=== PATIENT | female | born 1975 | race Caucasian/White ===

== ENCOUNTER 2019-07-24 07:32 | Outpatient (CLI) | payer BC, SELFPAY ==
--- NOTE | 2019-07-24 07:37 | MM_ITS ---
WS: [id number] BILATERAL SCREENING DIGITAL MAMMOGRAM WITH CAD HISTORY: SCREENING COMPARISON: 06/01/2018 and 10/27/2017 Bilateral CC and MLO views submitted. Computer aided detection analyzed. Breast composition: The breasts are heterogeneously dense, which may obscure small masses. No suspici ous masses, microcalcifications or architectural distortion. Dense fibroglandular soft tissue upper o uter quadrant of each breast, greatest on the LEFT. 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 No distort ion. MM/[id number] IMPRESSION: BI-RADS: 2-Benign FOLLOW UP: 1 Year Follow-up
== END 2019-07-24 07:33 | disposition home or self-care (01) ==
LOC: RADSHAW 07:33
PROVIDERS: Family Provider Family Medicine; PCP Family Medicine; Visit Provider Family Medicine
DX: Z12.31 Encounter for screening mammogram for malignant neoplasm of breast (principal)
CPT/HCPCS: 77067

== ENCOUNTER 2019-09-27 22:06 | Emergency (ER) | payer BC, SELFPAY ==
[2019-09-27 22:17] VITALS: BP 126/85; PULSE 77; RESP 16; TEMP 36.3; O2SAT 98; BMI 30.2
--- NOTE | 2019-09-27 22:34 | USR_ITS ---
PROCEDURE INFORMATION: Exam: US Abdomen Complete Exam date and time: 09/27/2019 11:45 PM Age: 44 years old Clinical indication: Abdominal pain; Acute TECHNIQUE: Imaging protocol: Real-time ultrasound of the abdomen with image documentation. COMPARISON: No relevant prior studies available. FINDINGS: Liver: Unremarkable liver, no focal abnormality. Gallbladder: No cholelithiasis. Possible mild gallbladder wall thickening, measuring up to about 4 mm. No definite pericholecystic fluid. The gallbladder does not appear abnormally distended at this time. Common bile duct: No biliary dilation, common duct measures 3.6 mm. Pancreas: Visible pancreas unremarkable. Kidneys: Images of the kidneys show no hydronephrosis. Spleen: The spleen appears unremarkable. Aorta/IVC: Visualized portions of the aorta and IVC appear unremarkable. Intraperitoneal space: No visible ascites. US/US abdomen complete* [id number] IMPRESSION: 1. No cholelithiasis or biliary tree dilation 2. Possible mild gallbladder wall thickening. 3. Other details discussed above.
--- NOTE | 2019-09-27 22:49 | ED_ITS ---
HPI - Abdominal Pain General: Chief Complaint: Abdominal Pain Stated Complaint: upper abd pain Time Seen by Provider: 09/27/19 22:27 History of Present Illness: HPI narrative: Brittanie is a very nice 44-year-old female who comes in complaining of epigastric and right upper quadrant pain. She has had 5 similar episodes in the past over the last 6 months. Tonight was different because it lasted longer than before. She is been nauseated but has not vomited. She has no diarrhea, urinary symptoms or other complaints. She denies any radiation of her pain, fever or chest pain or shortness of breath. Associated Symptoms: Denies chills, coffee ground emesis, constipation, GI cramping, diarrhea, dysuria, fever(s), heartburn, hematochezia, hematuria, hematemesis, melena, syncope and vomiting Related Data: Date of Last Menstrual Period: 09/26/19 Review of Systems Const: Denies: fever(s), chills, body aches, fatigue, malaise, night sweats or diaphoresis Eyes: Denies: change in vision, blurry vision or blind spots ENMT: Denies: throat pain, odynophagia, hoarseness, ear or mastoid pain, ear discharge, change in hearing or nasal discharge Card: Denies: chest pain, palpitations, irregular heart rhythm, lightheadedness, syncope, pre-syncope, dyspnea on exertion or orthopnea Resp: Denies: dyspnea, productive cough, non-productive cough, wheezing, hemoptysis or chest congestion GI: Denies: vomiting, hematemesis, coffee ground emesis, heartburn, diarrhea, constipation, GI cramping, hematochezia or melena : Denies: flank pain, dysuria, urinary frequency, urinary urgency, oliguria, urinary incontinence or hematuria Musc: Denies: neck pain, back pain, extremity pain, extremity swelling, joint pain, joint swelling, joint redness, joint warmth or joint stiffness Skin/Breast: Denies: rash, pruritus, erythema, skin tenderness or jaundice Neuro: Denies: headache(s), numbness in extremities, weakness in extremities, sensory changes, lack of coordination, difficulty walking, dizziness, vertigo, confusion or Slurred speech present Endo: Denies: polyuria, polydipsia, tired all the time, cold intolerance, excessive sweating, flushing, hot flashes or heat intolerance Daniel/Lymph: Denies: easy bruising, easy bleeding, petechiae, purpura or enlarged lymph nodes All/Imm: Denies: urticaria, throat swelling, tongue swelling, facial swelling or acute wheezing PFSH ED PFSH: Medical History No pertinent past medical history Surgical History No history of previous surgery Social History Smoking and tobacco status: never smoked Female Reproductive History: Date of last menstrual period: 09/26/19 : 4 Physical Exam Const: COMMON NORMALS: no acute distress, patient oriented x3, no limitations, healthy appearing and well nourished EXAM LIMITATIONS: no altered mental status GENERAL APPEARANCE: cooperative, well kempt and well developed HENMT: COMMON NORMALS: normocephalic, atraumatic, hearing grossly normal bilaterally, external ears normal, EAC's normal, Normal external nose present and moist oral mucous membranes HEAD & SCALP: normal to inspection, normocephalic and atraumatic FACE & SINUS: normal facial exam and face symmetric NOSE: Normal external nose present and Normal nares present EXTERNAL EAR: Yes external ears normal EXTERNAL AUDITORY CANAL: EAC's normal MOUTH: Normal oral and palatal mucosa present, lip normal and tongue normal Eye: COMMON NORMALS: Equal, round and reactive pupils present, EOMs intact bilaterally, conjunctivae normal and no scleral icterus GENERAL EYE: appearance normal, both eyes and all related structures and normal light reflex ALIGNMENT: Yes alignment normal PERIORBITAL: periorbital findings normal EYELID: eyelids normal CONJUNCTIVA: Yes conjunctivae normal SCLERA: sclerae normal PUPIL: Yes Equal, round and reactive pupils present DIRECT OPHTHALMOSCOPY: Yes normal light reflex Neck/C-Spine: COMMON NORMALS: full ROM, no lymphadenopathy, supple, no meningeal signs and no JVD GENERAL: Yes normal visual inspection and Yes trachea midline CERVICAL SPINE: Yes cervical ROM normal Chest: COMMONS NORMALS: normal inspection of the chest and normal palpation of entire chest wall Resp: COMMON NORMALS: normal respiratory effort, No retractions, No use of accessory muscles and clear to auscultation bilaterally EFFORT & INSPECTION: Yes able to speak in complete sentences AUSCULTATION: clear to auscultation bilaterally, no crackles, no rales, no rhonchi and no wheezes Cardio: COMMON NORMALS: no JVD, regular rate, regular rhythm, S1 normal heart sound present, S2 normal heart sound present, No gallops present (Cardio), No clicks present (Cardio), No murmurs present (Cardio) and No rub (Cardio) RATE: regular rate RHYTHM: regular rhythm HEART SOUNDS: S1 normal heart sound present, S2 normal heart sound present, no click, no gallops, no murmurs and no rubs GI: COMMON NORMALS: Soft to palpation, No hepatosplenomegaly present and no masses PALPATION: Yes Soft to palpation, Yes Tenderness to palpation present (GI) (Moderate in the epigastric and right upper quadrant area), No Guarding due to palpation present (GI), No Rigid due to palpation, Yes No hepatosplenomegaly present, No Hernia present, No Palpable mass present and No Pulsatile mass present : COMMON NORMALS: Yes no CVA tenderness BLADDER/KIDNEY EXAM: Yes no CVA tenderness EXTERNAL FEMALE EXAM: No Hernia present Back/Pelvis: COMMON NORMALS: no CVA tenderness, thoracic and lumbar spine normal to inspection, no thoracic nor lumbar tenderness and thoraco-lumbar ROM normal Extremity: COMMON NORMALS: normal to inspection, full ROM, capillary refill normal, no joint enlargement, no clubbing, cyanosis or edema and no calf tenderness Neuro: COMMON NORMALS: patient oriented x3, CN's II-XII intact bilaterally, moves all extremities, no focal motor deficits and no sensory deficits noted MENINGEAL SIGNS: Yes no meningeal signs SPEECH: speech normal Psych: COMMON NORMALS: mental status grossly normal, Normal thought process present, cooperative, normal affect, speech normal and activity/motor behavior normal APPEARANCE: Yes well kempt SPEECH: Yes normal speech THOUGHT PROCESS: Normal thought process present Skin: COMMON NORMALS: no rashes or lesions noted, turgor normal, no jaundice, no petechiae and no mottling GENERAL SKIN EXAM: no rashes or lesions noted and turgor normal Course Vital Signs: Vital signs: Vital Signs Temperature 97.4 F L 09/27/19 22:17 Pulse Rate 68 09/28/19 01:40 Respiratory Rate 18 09/28/19 01:40 Blood Pressure 128/77 09/28/19 01:40 Pulse Oximetry 99 09/28/19 01:40 MDM - Abdominal Pain MDM Narrative: Medical decision making narrative: The case was reviewed with Dr. Tucker. He agrees to follow-up with the patient as an outpatient and order a possible HIDA scan. Patient states that she may follow-up with Dr. Tucker or with her primary. She declined staying for any further cardiac work-up. She agrees to return should her symptoms change or worsen but at this time her pain is gone and she is asymptomatic. Differential Diagnosis: Differential diagnosis abdominal pain: Likely abdominal pain, acute appendicitis, calculus of kidney, gastroenteritis, pancreatitis and small bowel obstruction Lab Data: Attestation: I reviewed the patient's lab results. Labs: Lab Results 09/27/19 09/27/19 09/27/19 Range/Units 22:40 22:40 22:40 WBC 12.7 H (4.0-10.0) 10^3/ uL RBC 4.88 (4.1-5.3) 10^6/u L Hgb 14.2 (11.5-15.3) g/dL Hct 43.8 (37.0-47.0) % MCV 89.8 (81-99) fL MCH 29.1 (28.0-34.0) pg MCHC 32.4 (30.0-36.0) g/dL RDW 11.8 L (12.1-15.1) % Plt Count 318 (130-400) 10^3/c mm MPV 10.1 (7.4-10.4) fL Neut % (Auto) 78.1 % Lymph % (Auto) 12.5 % Pacific % (Auto) 5.8 % Eos % (Auto) 3.1 % Baso % (Auto) 0.3 % Neut # (Auto) 9.9 H (1.8-7.7) 10^3/u L Lymph # (Auto) 1.6 (0.8-4.8) 10^3/u L Pacific # (Auto) 0.7 (0.2-0.9) 10^3/u L Eos # (Auto) 0.4 (0.0-0.8) 10^3/u L Baso # (Auto) 0.0 (0.0-0.1) 10^3/u L Nucleated RBC % (a uto) 0 % Nucleated RBCs # 0.0 /100WBC Sodium 142 (136-145) mmol/L Potassium 4.1 (3.5-5.1) mmol/L Chloride 103 (98-107) mmol/L Carbon Dioxide 29 (22-29) mmol/L Anion Gap 14.1 (5-19) BUN 15 (6-20) mg/dL Creatinine 0.7 (0.5-0.9) mg/dL GFR Calculation 90.5 (90-130) mL/min Glucose 102 (65-115) mg/dL Calculated Osmolal ity 290 (285-295) mOsm/k g Calcium 9.9 (8.5-10.5) mg/dL Total Bilirubin 0.5 (0.15-1.2) mg/dL AST 17 (0-32) U/L ALT 9 (0-33) U/L Alkaline Phosphata se 58 (35-105) IU/L Total Protein 7.4 (6.6-8.7) g/dL Albumin 4.8 (3.5-5.2) g/dL Globulin 2.6 (1.3-4.6) g/dL Lipase 42 (13-60) U/L HCG, Qual Negative (Negative) Urine Color (Yellow) Urine Appearance (CLEAR) Urine pH (5-7) Ur Specific Gravit y (1.005-1.030) Urine Protein (Negative) Urine Glucose (UA) (Normal) Urine Ketones (Negative) Urine Blood (Negative) Urine Nitrate (Negative) Urine Bilirubin (NEGATIVE) Urine Urobilinogen (Negative) mg/dL Ur Leukocyte Anai ase (Negative) Urine RBC (0-2) /hpf Urine WBC (0-5) /hpf Ur Squamous Epith Cells (0-5) Amorphous Sediment Urine Bacteria (NONE) H. pylori IgG Anti body (Negative) 09/27/19 09/27/19 Range/Units 22:40 23:53 WBC (4.0-10.0) 10^3/ uL RBC (4.1-5.3) 10^6/u L Hgb (11.5-15.3) g/dL Hct (37.0-47.0) % MCV (81-99) fL MCH (28.0-34.0) pg MCHC (30.0-36.0) g/dL RDW (12.1-15.1) % Plt Count (130-400) 10^3/c mm MPV (7.4-10.4) fL Neut % (Auto) % Lymph % (Auto) % Pacific % (Auto) % Eos % (Auto) % Baso % (Auto) % Neut # (Auto) (1.8-7.7) 10^3/u L Lymph # (Auto) (0.8-4.8) 10^3/u L Pacific # (Auto) (0.2-0.9) 10^3/u L Eos # (Auto) (0.0-0.8) 10^3/u L Baso # (Auto) (0.0-0.1) 10^3/u L Nucleated RBC % (a uto) % Nucleated RBCs # /100WBC Sodium (136-145) mmol/L Potassium (3.5-5.1) mmol/L Chloride (98-107) mmol/L Carbon Dioxide (22-29) mmol/L Anion Gap (5-19) BUN (6-20) mg/dL Creatinine (0.5-0.9) mg/dL GFR Calculation (90-130) mL/min Glucose (65-115) mg/dL Calculated Osmolal ity (285-295) mOsm/k g Calcium (8.5-10.5) mg/dL Total Bilirubin (0.15-1.2) mg/dL AST (0-32) U/L ALT (0-33) U/L Alkaline Phosphata se (35-105) IU/L Total Protein (6.6-8.7) g/dL Albumin (3.5-5.2) g/dL Globulin (1.3-4.6) g/dL Lipase (13-60) U/L HCG, Qual (Negative) Urine Color Yellow (Yellow) Urine Appearance Clear (CLEAR) Urine pH 7 (5-7) Ur Specific Gravit y 1.010 (1.005-1.030) Urine Protein Neg (Negative) Urine Glucose (UA) Norm (Normal) Urine Ketones Negative (Negative) Urine Blood Neg (Negative) Urine Nitrate Negative (Negative) Urine Bilirubin Neg (NEGATIVE) Urine Urobilinogen Norm (Negative) mg/dL Ur Leukocyte Anai ase Negative (Negative) Urine RBC Rare (0-2) /hpf Urine WBC Rare (0-5) /hpf Ur Squamous Epith Cells Rare (0-5) Amorphous Sediment 1+ Urine Bacteria 1+ H (NONE) H. pylori IgG Anti body Negative (Negative) Imaging Data ^: US: Radiologist's impression: [address] [place] [address] Ultrasound Report Signed Patient: Brittanie Preciado Unit #: [id number] : 1975 Age/Sex: 44 / F ADM Date: 09/27/19 Loc: ER Room/Bed: Attending Dr: Ordering Provider/Ordering MD: Marisa Jett DO Date of Service: 09/27/19 Procedure(s): US abdomen complete* [id number] Accession Number(s): [id number] Report Number: [id number] PROCEDURE INFORMATION: Exam: US Abdomen Complete Exam date and time: 09/27/2019 11:45 PM Age: 44 years old Clinical indication: Abdominal pain; Acute TECHNIQUE: Imaging protocol: Real-time ultrasound of the abdomen with image documentation. COMPARISON: No relevant prior studies available. FINDINGS: Liver: Unremarkable liver, no focal abnormality. Gallbladder: No cholelithiasis. Possible mild gallbladder wall thickening, measuring up to about 4 mm. No definite pericholecystic fluid. The gallbladder does not appear abnormally distended at this time. Common bile duct: No biliary dilation, common duct measures 3.6 mm. Pancreas: Visible pancreas unremarkable. Kidneys: Images of the kidneys show no hydronephrosis. Spleen: The spleen appears unremarkable. Aorta/IVC: Visualized portions of the aorta and IVC appear unremarkable. Intraperitoneal space: No visible ascites. US/US abdomen complete* [id number] IMPRESSION: 1. No cholelithiasis or biliary tree dilation 2. Possible mild gallbladder wall thickening. 3. Other details discussed above. Dictated By: Ford Vann MD Signed By: Ford Vann MD Signed Date/Time: 09/28/19 0002 DD/ 0001 Discharge Plan Discharge Patient Disposition: Home, Self-Care Clinical Impression: Acute epigastric pain Condition: Stable Prescriptions: New Augmentin 875-125 mg tablet 1 tab PO BID 10 Days Qty: 20 RF: 0 Zofran 4 mg tablet 4 mg PO Q6H PRN (Reason: nausea and vomiting) Qty: 20 RF: 0 Discharge Orders: Discharge Order (Routine); Ordered 09/28/19 Ordered By: Marisa Jett Referrals: Ramón Tucker MD [Physician] - 1-3 days Jitendra Voss MD [Primary Care Provider] - 1-3 days Patient Instructions: Abdominal Pain (ED) Activity Restrictions/Additional Instructions: Please return to the ER immediately for any of the signs or symptoms listed on your discharge instruction sheets, worsening/changing of your symptoms, you are not getting better as quickly as expected, or for ANY other cause or concerns. If you change your mind and want your heart evaluated or your abdominal pain returns you are more than welcome to return to the ER for recheck and further evaluation and care. Discharge Date/Time: 09/28/19 01:41 Coding Level of Care Code ED Bandsaw Operator for Chg Fwd Exam Comprehensive
[2019-09-27] MEDS: ondansetron 2 mg/ML SDV 2 mL 4 MG IVP (22:50)
[2019-09-27 22:51] VITALS: RESP 18; O2SAT 99
[2019-09-27] MEDS: morphine 4 mg/mL SDV 1 mL IVP (22:51)
[2019-09-27 23:04] LABS: Basophils % 0.3 %; Eosinophils # 0.4 10^3/uL (0.0-0.8); Eosinophils % 3.1 %; Hematocrit 43.8 % (37.0-47.0); Hemoglobin 14.2 g/dL (11.5-15.3); Lymphocytes # 1.6 10^3/uL (0.8-4.8); Lymphocytes % 12.5 %; Mean Corpuscular HGB Conc 32.4 g/dL (30.0-36.0); Mean Corpuscular Hemoglobin 29.1 pg (28.0-34.0); Mean Corpuscular Volume 89.8 fL (81-99); Mean Platelet Volume 10.1 fL (7.4-10.4); Monocytes # 0.7 10^3/uL (0.2-0.9); Monocytes % 5.8 %; Neutrophils # 9.9 10^3/uL (1.8-7.7); Neutrophils % 78.1 %; Nucleated Red Blood Cells % 0 %; Platelet Count 318 10^3/cmm (130-400); Red Blood Count 4.88 10^6/uL (4.1-5.3); Red Cell Distribution Width 11.8 % (12.1-15.1); White Blood Count 12.7 10^3/uL (4.0-10.0)
[2019-09-27 23:11] LABS: HCG, Serum Qual Negative (Negative)
[2019-09-27 23:25] LABS: Alanine Aminotransferase 9 U/L (0-33); Albumin Level 4.8 g/dL (3.5-5.2); Alkaline Phosphatase 58 IU/L (35-105); Anion Gap 14.1 (5-19); Aspartate Amino Transferase 17 U/L (0-32); Blood Urea Nitrogen 15 mg/dL (6-20); Calcium 9.9 mg/dL (8.5-10.5); Carbon Dioxide 29 mmol/L (22-29); Chloride 103 mmol/L (98-107); Creatinine Clr Calc Pharmacy 96.1265; Globulin 2.6 g/dL (1.3-4.6); Glomerular Filtration Rate 90.5 mL/min (90-130); Glucose 102 mg/dL (65-115); Lipase 42 U/L (13-60); Osmolality Calculated 290 mOsm/kg (285-295); Potassium 4.1 mmol/L (3.5-5.1); Sodium 142 mmol/L (136-145); Total Bilirubin 0.5 mg/dL (0.15-1.2); Total Protein 7.4 g/dL (6.6-8.7)
[2019-09-27] MEDS: lidocaine 2% viscous 15 ML, aluminum-mag hydrox-simethicon 30 ML, sucralfate oral liq 1 GM PO (23:49)
[2019-09-28 00:08] VITALS: BP 132/68; PULSE 82; RESP 16; O2SAT 99
[2019-09-28 00:16] LABS: Amorphous Sediment Urine 1+; Bacteria Urine 1+; Bilirubin Urine Neg (NEGATIVE); Blood Urine Neg (Negative); Glucose Urine UA Norm (Normal); Ketones Urine Negative (Negative); Leukocyte Esterase Urine Negative (Negative); Nitrate Urine Negative (Negative); Protein Urine Neg (Negative); RBC Urine RARE /hpf (0-2); Squamous Epithelial Cell Urine RARE (0-5); Urine Appearance Clear (CLEAR); Urine Color Yellow (Yellow); Urobilinogen Urine Norm (Negative); WBC Urine RARE /hpf (0-5); pH Urine 7 (5-7)
[2019-09-28 00:41] LABS: H. Pylori IgG Antibody Negative (Negative)
[2019-09-28] MEDS: amoxicillin-clav 875-125 mg Tablet 1 TAB PO (01:38)
[2019-09-28 01:40] VITALS: BP 128/77; PULSE 68; RESP 18; O2SAT 99
--- NOTE | 2019-09-30 11:21 | DCPLANNER ---
retention manager had message to schedule a follow up appointment for patient with general surgery. retention manager called [facility], spoke with Sandra. A follow up appointment was scheduled for Tuesday, October 01, 2019 at 3:[address] Tucker. Clinic will call patient with appointment information.
--- NOTE | 2019-10-23 15:03 | DCPLANNER ---
Appointment scheduled with [facility] was cancelled.
== END 2019-09-28 01:41 | disposition home or self-care (01) ==
PROVIDERS: Emergency Provider Emergency Medicine; PCP Family Medicine
DX: R10.13 Epigastric pain (principal)
CPT/HCPCS: 12345; 76700; 80053; 81001; 83690; 84703; 85025; 86677; 96374; 96375; 99283; A9270; J2270; J2405

== ENCOUNTER 2020-10-09 15:13 | Outpatient (CLI) | payer OTHER, SELFPAY ==
--- NOTE | 2020-10-09 15:18 | MM_ITS ---
WS: [id number] BILATERAL SCREENING DIGITAL MAMMOGRAM WITH CAD HISTORY: SCREENING COMPARISON: 07/24/2019, 06/01/2018 ultrasound 06/01/2018 Bilateral CC and MLO views submitted. Computer aided detection analyzed. Breast composition: The breasts are heterogeneously dense, which may obscure small masses. Dense fibr oglandular tissue in the upper-outer quadrant of the LEFT breast with partially obscured nodules. Sim ilar findings present on prior studies. Numerous cysts seen on prior ultrasound. MM/[place] [id number] IMPRESSION: BI-RADS: 2-Benign FOLLOW UP: 1 Year Follow-up
== END 2020-10-09 15:14 | disposition home or self-care (01) ==
LOC: RADSHAW 15:17
PROVIDERS: PCP Family Medicine; Visit Provider Family Medicine
DX: Z12.31 Encounter for screening mammogram for malignant neoplasm of breast (principal)
CPT/HCPCS: 77067

== ENCOUNTER 2021-12-27 08:54 | Outpatient (CLI) | payer OTHER, SELFPAY ==
--- NOTE | 2021-12-27 08:59 | MM_ITS ---
WS: [id number] VIEWS: MLO and CC views both breasts. 3D digital tomosynthesis is also included in this exam. Comparison made with prior exam of 02/22/2016, 10/20/2016, 10/27/2017, 06/01/2018, 07/24/2019, 10/09/2020.. Findings: There was no sign of mass, architectural distortion or suspicious calcification in either breast. He terogeneously dense MM/[place] [id number] Impression: BI-RADS: 2-Benign FOLLOW-UP: 1 Year Follow-up This mammogram was also analyzed by the Computer Aided Detection System R2 Imag e Knife Operator.
== END 2021-12-27 08:55 | disposition home or self-care (01) ==
LOC: RAD 08:54
PROVIDERS: PCP Family Medicine; Visit Provider Family Medicine
DX: Z12.31 Encounter for screening mammogram for malignant neoplasm of breast (principal)
CPT/HCPCS: 77063; 77067

== ENCOUNTER 2023-01-02 08:01 | Outpatient (CLI) | payer OTHER, SELFPAY ==
--- NOTE | 2023-01-02 08:11 | MM_ITS ---
WS: [id number] BILATERAL 3D TOMOSYNTHESIS DIGITAL SCREENING MAMMOGRAPHY WITH CAD CLINICAL INFORMATION: SCREENING HISTORY: Screening mammogram. No current complaints. COMPARISON: 2021 TECHNIQUE: Bilateral CC and MLO views. FINDINGS: The breasts are composed of heterogeneous fibroglandular density tissue, which can limit the detectio n of small underlying mass lesions. No suspicious mass, asymmetry, calcifications, or architectural d istortion. No evidence of malignancy. Dense breast tissue upper outer LEFT breast similar to the prio r examinations. Previously described cysts in the upper outer LEFT breast some of which have increase d in size compared to previous but similar in configuration. These have been previously evaluated by ultrasound. IMPRESSION: MM/[place] [id number] BI-RADS: 2-Benign FOLLOW UP: 1 Year Follow-up Recommend return to annual screening mammography.
== END 2023-01-02 08:02 | disposition home or self-care (01) ==
PROVIDERS: PCP Family Medicine; Visit Provider Family Medicine
DX: Z12.31 Encounter for screening mammogram for malignant neoplasm of breast (principal)
CPT/HCPCS: 77063; 77067

== ENCOUNTER 2024-02-09 11:41 | Outpatient (CLI) | payer OTHER, SELFPAY ==
--- NOTE | 2024-02-09 11:43 | MM_ITS ---
WS: [id number] SCREENING DIGITAL BREAST TOMOSYNTHESIS MAMMOGRAM WITH CAD HISTORY: SCREENING COMPARISON: 07/24/2019, 06/01/2018, 01/02/2023, prior breast ultrasound 02/22/2016 and 06/01/2018 Bilateral CC and MLO with tomosynthesis and synthetic mammography submitted. Computer aided detection analyzed. Breast composition: The breasts are extremely dense, which lowers the sensitivity of mammography. Inc reasing asymmetry in the posterior LEFT breast just medial to the nipple line measures 2.1 x 3.0 x 1. 9 cm. There is an additional asymmetry which is partially obscured and is probably a cyst that has be en previously described. Breasts are very dense in the upper outer quadrant and towards the midline. Additional partially obscured focal asymmetry in the lateral RIGHT breast seen best on the CC project ion. Very dense fibroglandular tissue upper outer quadrant. MM/MM scr BI tomosynthesis [id number] IMPRESSION: BI-RADS: 0 - Incomplete: Need additional imaging evaluation FOLLOW UP: Need Additional Imaging 1. Recommend additional evaluation of the upper outer quadrant of each breast due to the very dense asymmetry and fibroglandular tissue. There is a new parti ally obscured mass of increased density near 9:00 of the LEFT breast which need s to be further evaluated. 2. RIGHT breast ultrasound: Upper outer quadrant. 3. LEFT breast: Upper outer quadrant and 9:00.
== END 2024-02-09 11:42 | disposition home or self-care (01) ==
LOC: RAD 11:41
PROVIDERS: PCP Family Medicine; Visit Provider Family Medicine
DX: Z12.31 Encounter for screening mammogram for malignant neoplasm of breast (principal); R92.333 Mammographic heterogeneous density, bilateral breasts; N64.89 Other specified disorders of breast
CPT/HCPCS: 77063; 77067

== ENCOUNTER 2024-02-26 12:18 | Emergency (ER) | payer OTHER, SELFPAY ==
[2024-02-26 12:20] VITALS: BP 155/87; PULSE 109; RESP 18; TEMP 36.8; O2SAT 98; BMI 29.2
--- NOTE | 2024-02-26 12:26 | XRR_ITS ---
PROCEDURE INFORMATION: Exam: XR Chest Exam date and time: 02/26/2024 12:40 PM Age: 48 years old Clinical indication: Other: Weakness TECHNIQUE: Imaging protocol: Radiologic exam of the chest. Views: 1 view. COMPARISON: No relevant prior studies available. FINDINGS: Lungs: Unremarkable. No consolidation. Pleural spaces: Unremarkable. No pleural effusion. No pneumothorax. Heart/Mediastinum: Unremarkable. No cardiomegaly. Bones/joints: Unremarkable. XR/XR chest 1V portable [id number] IMPRESSION: No acute findings.
--- NOTE | 2024-02-26 12:27 | ECG_ITS ---
[facility]: 2024-[facility]26 Pat Name: Brittanie Preciado Department: Room: Gender: Female Specialist Physicians: : 1975 Requested By: Kay Metcalf Order Number: [id number] Jennifer MD: Leo Martin M.D. Measurements Intervals [place] Rate: 77 P: 56 CT: 145 QRS: 36 QRSD: 89 T: 46 QT: 339 QTc: 385 Interpretive Statements SINUS RHYTHM NONSPECIFIC T-WAVE ABNORMALITY No previous ECG available for comparison Electronically Signed On 02-26-2024 14:05:49 CDT by Leo Martin M.D. [email or web address]
--- NOTE | 2024-02-26 12:34 | CT_ITS ---
WS: [id number] CT HEAD NONCONTRAST HISTORY: wolfe TECHNIQUE: Contiguous axial imaging performed through the brain. Bone and soft tissue windows. Sagitt al and coronal reformats reviewed. All CT scans at [facility] use at least one of these dose optimization techniques: automated exposure control; mA and/or kV adjustment per patient size (includ es targeted exams where dose is matched to clinical indication); or iterative reconstruction. DLP: 1091.38 mGy.cm COMPARISON: None available. No acute intracranial hemorrhage, midline shift or mass effect. No atrophy or prior infarcts or herniation. Ventricles: Normal size with no hydrocephalus. No inferior displacement of cerebellar tonsils. Paranasal sinuses: As visualized are clear. Mastoid air cells: Well pneumatized. Calvarium and scalp: Skull is intact with no soft tissue edema or swelling. CT/CT head wo con* [id number] IMPRESSION: 1. No acute intracranial hemorrhage or edema. 2. No prior infarct or volume loss.
--- NOTE | 2024-02-26 12:41 | ED_ITS ---
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 States she felt like she is having a migraine earlier today around 11 a.m. She states she started having difficulty finding words along with some confusion patient states that this lasted for roughly 15 minutes is since resolved she is back to her baseline. Denies any history of stroke in the past. Denies headache currently Associated symptoms: Reports headache(s); Deny chest pain, nausea or vomiting Related Data Home Medications Medication Instructions Recorded Confirmed No Known Home Medications 02/26/24 02/26/24 Allergies Allergy/AdvReac Type Severity Reaction Status Date / Time No Known Allergies Allergy Verified 02/26/24 12:29 Review of Systems 2 Const: Denies: fever(s), chills, body aches or change in appetite Eyes: Denies: eye discomfort ENMT: Denies: throat pain or dental pain Card: Denies: chest pain Resp: Denies: dyspnea GI: Denies: abdominal pain, nausea, vomiting or diarrhea Musc: Denies: neck pain or back pain Skin/Breast: Denies: rash Neuro: Reports: headache(s) PFS ED 2 PFSH: Medical History (Updated 02/26/24 @ 14:09 by Kay Metcalf MD) No pertinent past medical history Surgical History No history of previous surgery Social History Smoking and tobacco/nicotine status: never used tobacco/nicotine NIH stroke score 2 NIHSS: Level Of Consciousness - 1a: 0 Level Of Consciousness Questions - 1b: Both Correct Level Of Consciousness Commands - 1c: Both Correct Best Gaze - 2: Normal Visual [place] - 3: No Visual Loss Facial Palsy - 4: N ormal Motor Arm Right - 5: No Drift Motor Arm Left - 5: No Drift Motor Leg Right - 6: No Drift Motor Leg Left - 6: No Drift Limb Ataxia - 7: A bsent Sensory - 8: Normal Best Language - 9: No Aphasia Dysarthia - 10: Normal Extinction And Inattention - 11: 0 Score: Total Score: 0 Physical Exam 2 Const: COMMON NORMALS: patient oriented x3 and healthy appearing HENMT: COMMON NORMALS: normocephalic and atraumatic HEAD & SCALP: n ormocephalic and atraumatic Eye: COMMON NORMALS: Equal, round and reactive pupils present and EOMs intact bilaterally PUPIL: Yes Equal, round and reactive pupils present Neck/C-Spine: COMMON NORMALS: full ROM and supple Chest: COMMONS NORMALS: normal inspection of the chest Resp: COMMON NORMALS: normal respiratory effort, No retractions, No use of accessory muscles and clear to auscultation bilaterally AUSCULTATION: clear to auscultation bilaterally Cardio: COMMON NORMALS: regular rate, regular rhythm and No murmurs present (Cardio) RATE: regular rate RHYTHM: regular rhythm Extremity: COMMON NORMALS: normal to inspection and full ROM Neuro: COMMON NORMALS: patient oriented x3, moves all extremities and no focal motor deficits CRANIAL NERVES: Yes CN normal except as noted SPEECH: s peech normal MOTOR EXAM: 5/5 motor strength present throughout Psych: COMMON NORMALS: mental status grossly normal, Normal thought process present and cooperative THOUGHT PROCESS: Normal thought process present Skin: COMMON NORMALS: no rashes or lesions noted and no wounds GENERAL SKIN EXAM: no rashes or lesions noted Course 2 Vital Signs: Vital signs: Vital Signs Temperature 98.3 F 02/26/24 12:20 Pulse Rate 98 02/26/24 13:35 Respiratory Rate 16 02/26/24 13:35 Blood Pressure 136/85 02/26/24 13:35 Pulse Oximetry 98 02/26/24 13:35 Oxygen Delivery Me thod Room Air 02/26/24 13:35 MDM - Neuro Symptoms/Deficit Medical Decision Making Patient presents here with migraine also had likely a TIA versus migraine with variant. She had no signs of a stroke head CT is normal I did offer admission states she feels improved like to go home she is follow-up with her PCP and 4 to 7 days return if worsening she understands agrees to plan. Medical Records I reviewed the patient's medical records. Lab Data I reviewed the patient's lab results. 02/26/24 13:08 02/26/24 13:08 Radiology Impressions Chest X-Ray 02/26/24 12:26 IMPRESSION: No acute findings. Head CT 02/26/24 12:34 IMPRESSION: 1. No acute intracranial hemorrhage or edema. 2. No prior infarct or volume loss. Laboratory Results WBC 12.80 10^3/uL (3.29-11.43) H 02/26/24 13:08 RBC 4.78 10^6/uL (3.85-5.65) 02/26/24 13:08 Hgb 13.90 g/dL (11.27-16.99) 02/26/24 13:08 Hct 42.8 % (36-47) 02/26/24 13:08 MCV 89.5 fl (85-98) 02/26/24 13:08 MCH 29.1 pg (27-33) 02/26/24 13:08 MCHC 32.5 g/dL (30-55) 02/26/24 13:08 RDW 12.3 % (12.1-15.1) 02/26/24 13:08 Plt Count 298 10^3/cmm (157-399) 02/26/24 13:08 MPV 9.7 fL (7.4-10.4) 02/26/24 13:08 Neut % (Auto) 75.7 % 02/26/24 13:08 Lymph % (Auto) 12.4 % 02/26/24 13:08 Ocean % (Auto) 6.8 % 02/26/24 13:08 Eos % (Auto) 4.2 % 02/26/24 13:08 Baso % (Auto) 0.4 % 02/26/24 13:08 Neut # (Auto) 9.69 10^3/uL (1.8-7.7) H 02/26/24 13:08 Lymph # (Auto) 1.6 10^3/uL (0.8-4.8) 02/26/24 13:08 Ocean # (Auto) 0.9 10^3/uL (0.2-0.9) 02/26/24 13:08 Eos # (Auto) 0.5 10^3/uL (0.0-0.8) 02/26/24 13:08 Baso # (Auto) 0.1 10^3/uL (0.0-0.1) 02/26/24 13:08 Nucleated RBC % (auto) 0 % 02/26/24 13:08 Nucleated RBCs # 0.0 /100WBC 02/26/24 13:08 Sodium 139 mmol/L (136-145) 02/26/24 13:08 Potassium 4.4 mmol/L (3.5-5.1) 02/26/24 13:08 Chloride 105 mmol/L (98-107) 02/26/24 13:08 Carbon Dioxide 24 mmol/L (22-29) 02/26/24 13:08 Anion Gap 14.4 (5-19) 02/26/24 13:08 BUN 13 mg/dL (6-20) 02/26/24 13:08 Creatinine 0.6 mg/dL (0.5-0.9) 02/26/24 13:08 GFR Calculation 106.3 mL/min (90-130) 02/26/24 13:08 Glucose 96 mg/dL (65-115) 02/26/24 13:08 POC Glucose 96 mg/dL (70-110) 02/26/24 12:44 Calculated Osmolality 288 mOsm/kg (285-295) 02/26/24 13:08 Calcium 9.1 mg/dL (8.5-10.5) 02/26/24 13:08 Total Bilirubin 0.7 mg/dL (0.15-1.2) 02/26/24 13:08 AST 18 U/L (0-32) 02/26/24 13:08 ALT 17 U/L (0-33) 02/26/24 13:08 Alkaline Phosphatase 66 U/L (35-105) 02/26/24 13:08 Total Protein 7.0 g/dL (6.6-8.7) 02/26/24 13:08 Albumin 4.5 g/dL (3.5-5.2) 02/26/24 13:08 Globulin 2.5 g/dL (1.3-4.6) 02/26/24 13:08 Urine Color Yellow (Yellow) 02/26/24 13:14 Urine Appearance Clear (CLEAR) 02/26/24 13:14 Urine pH 7.0 (5-7) 02/26/24 13:14 Ur Specific [place] 1.002 (1.005-1.030) L 02/26/24 13:14 Urine Protein Negative (Negative) 02/26/24 13:14 Urine Glucose (UA) Negative (Normal) 02/26/24 13:14 Urine Ketones Negative (Negative) 02/26/24 13:14 Urine Blood Negative (Negative) 02/26/24 13:14 Urine Nitrate Negative (Negative) 02/26/24 13:14 Urine Bilirubin Negative (Negative) 02/26/24 13:14 Urine Urobilinogen 0.2 mg/dL (Negative) 02/26/24 13:14 Ur Leukocyte Esterase Negative (Negative) 02/26/24 13:14 Urine RBC 0-2 /hpf (0-2) 02/26/24 13:14 Urine WBC 0-5 /hpf (0-5) 02/26/24 13:14 Ur Squamous Epith Cells 0-5 /hpf (0-5) 02/26/24 13:14 Amorphous Sediment Not Reportable 02/26/24 13:14 Urine Bacteria None seen /hpf (NONE) 02/26/24 13:14 Hyaline Casts 0-4 /lpf H 02/26/24 13:14 All radiology interpretation(s) finalized by discharge EKG Data EKG 1: I personally reviewed and interpreted this EKG as follows: EKG interpretation date: 02/26/24 EKG interpretation time: 13:13 Interpretation: nsr hr [address] or t wave abnormalities qrs 89 qtc 371 Discharge Plan Discharge Patient Disposition: Home Clinical Impression: Transient cerebral ischemia, Migraine Condition: Stable Prescriptions: No Action No Known Home Medications Discharge Orders: Discharge ED (Routine); Ordered 02/26/24 Ordered By: Kya Metcalf Referrals: Jitendra Voss MD [Primary Care Provider] - 4-7 days Discharge Diet: Advance as tolerated Discharge Activity: Resume usual activity Patient Instructions: Transient Ischemic Attack (ED), Ocular Migraine (ED) Coding Level of Care Code ED Assistant To [facility] for [facility]
[2024-02-26 12:47] LABS: Glucose Point of Care 96 mg/dL (70-110)
[2024-02-26 13:20] LABS: Basophils # 0.1 10^3/uL (0.0-0.1); Basophils % 0.4 %; Eosinophils # 0.5 10^3/uL (0.0-0.8); Eosinophils % 4.2 %; Hematocrit 42.8 % (36-47); Lymphocytes # 1.6 10^3/uL (0.8-4.8); Lymphocytes % 12.4 %; Mean Corpuscular HGB Conc 32.5 g/dL (30-55); Mean Corpuscular Hemoglobin 29.1 pg (27-33); Mean Corpuscular Volume 89.5 fl (85-98); Mean Platelet Volume 9.7 fL (7.4-10.4); Monocytes # 0.9 10^3/uL (0.2-0.9); Monocytes % 6.8 %; Neutrophils # 9.69 10^3/uL (1.8-7.7); Neutrophils % 75.7 %; Nucleated Red Blood Cells % 0 %; Platelet Count 298 10^3/cmm (157-399); Red Blood Count 4.78 10^6/uL (3.85-5.65); Red Cell Distribution Width 12.3 % (12.1-15.1)
[2024-02-26 13:35] VITALS: BP 136/85; PULSE 98; RESP 16; O2SAT 98
[2024-02-26 13:39] LABS: Bilirubin Urine Negative (Negative); Blood Urine Negative (Negative); Glucose Urine UA Negative (Normal); Ketones Urine Negative (Negative); Leukocyte Esterase Urine Negative (Negative); Nitrate Urine Negative (Negative); Protein Urine Negative (Negative); Specific Gravity, Urine 1.002 (1.005-1.030); Urine Appearance Clear (CLEAR); Urine Color Yellow (Yellow); Urobilinogen Urine 0.2 mg/dL (Negative)
[2024-02-26 13:41] LABS: Add Urine Microscopic? YES; Bacteria Urine None Seen /hpf; Hyaline Casts Urine 0-4 /lpf; RBC Urine 0-2 /hpf (0-2); Squamous Epithelial Cell Urine 0-5 /hpf (0-5); WBC Urine 0-5 /hpf (0-5)
[2024-02-26 13:42] LABS: Alanine Aminotransferase 17 U/L (0-33); Albumin Level 4.5 g/dL (3.5-5.2); Alkaline Phosphatase 66 U/L (35-105); Anion Gap 14.4 (5-19); Aspartate Amino Transferase 18 U/L (0-32); Blood Urea Nitrogen 13 mg/dL (6-20); Calcium 9.1 mg/dL (8.5-10.5); Carbon Dioxide 24 mmol/L (22-29); Chloride 105 mmol/L (98-107); Creatinine Clr Calc Pharmacy 105.8012; Globulin 2.5 g/dL (1.3-4.6); Glomerular Filtration Rate 106.3 mL/min (90-130); Glucose 96 mg/dL (65-115); Osmolality Calculated 288 mOsm/kg (285-295); Potassium 4.4 mmol/L (3.5-5.1); Sodium 139 mmol/L (136-145); Total Bilirubin 0.7 mg/dL (0.15-1.2)
[2024-02-26 13:56] LABS: Add Urine Culture? No
[2024-02-26 14:17] VITALS: BP 121/77; PULSE 86; RESP 16; O2SAT 99
== END 2024-02-26 14:17 | disposition home or self-care (01) ==
PROVIDERS: Emergency Provider Emergency Medicine; PCP Family Medicine
DX: G45.9 Transient cerebral ischemic attack, unspecified (principal); G43.909 Migraine, unspecified, not intractable, without status migrainosus
CPT/HCPCS: 36416; 70450; 71045; 80053; 81001; 82962; 85025; 93005; 99285

== ENCOUNTER 2024-03-18 09:00 | Outpatient (CLI) | payer OTHER, SELFPAY ==
--- NOTE | 2024-03-18 09:04 | MM_ITS ---
WS: [id number] DIAGNOSTIC BILATERAL DIGITAL BREAST TOMOSYNTHESIS MAMMOGRAPHY WITH CAD Bilateral breast ultrasound, limited. HISTORY: ABNORMAL MAMMO COMPARISON: 02/09/2024, 01/02/2023 and 12/27/2021 TECHNIQUE: Bilateral craniocaudad, mediolateral oblique, and mediolateral views are submitted with to mosynthesis and SM. Bilateral spot compression views and MLO and CC. Computer aided detection utilize d. Extreme asymmetries and increased density in each breast towards the upper outer quadrants and in the LEFT breast at 9:00. Some of these findings have been present on prior studies but the overall densi ty appears greater on today's examination. Partial improvement in the overall density with spot compr ession views. Bilateral breast ultrasound. Numerous cysts of varying sizes and shapes are present within each breast in the upper outer quadrant s. No abnormality LEFT breast at 9:00. No solid mass. MM/MM diag BI tomosynthesis [id number] IMPRESSION: BI-RADS: 2- Benign FOLLOW UP: 1 Year Follow-up
== END 2024-03-18 09:02 | disposition home or self-care (01) ==
PROVIDERS: PCP Family Medicine; Visit Provider Family Medicine
DX: N60.11 Diffuse cystic mastopathy of right breast (principal); N60.12 Diffuse cystic mastopathy of left breast; N64.89 Other specified disorders of breast
CPT/HCPCS: 76642; 77062; G0279

== ENCOUNTER 2025-03-21 14:10 | Outpatient (CLI) | payer OTHER, SELFPAY ==
--- NOTE | 2025-03-21 14:15 | MM_ITS ---
WS: [id number] BILATERAL 3D TOMOSYNTHESIS DIGITAL SCREENING MAMMOGRAPHY WITH CAD CLINICAL INFORMATION: SCREENING HISTORY: Screening mammogram. No current complaints. COMPARISON: 2023 TECHNIQUE: Bilateral CC and MLO views. FINDINGS: The breasts are composed of heterogeneous fibroglandular density tissue, which can limit the detection of small underlying mass lesions. No suspicious mass, asymmetry, calcifications, or architectural distortion. No evidence of malignancy. Similar-appearing nodular densities LEFT greater than RIGHT breast. Some of the nodules upper outer LEFT breast have increased in size. Prior ultrasound demonstrated multiple cysts. MM/MM [facility] tomosynthesis [id number] IMPRESSION: DENSITY: The breasts are heterogeneously dense, which may obscure small masses. BI-RADS: 2 - Benign FOLLOW UP: 1 Year Follow-up Recommend return to annual screening mammography.
== END 2025-03-21 14:11 | disposition home or self-care (01) ==
LOC: RAD 14:11
PROVIDERS: PCP Family Medicine; Visit Provider Family Medicine
DX: Z12.31 Encounter for screening mammogram for malignant neoplasm of breast (principal); R92.323 Mammographic fibroglandular density, bilateral breasts; R92.333 Mammographic heterogeneous density, bilateral breasts; R92.8 Other abnormal and inconclusive findings on diagnostic imaging of breast; N60.12 Diffuse cystic mastopathy of left breast
CPT/HCPCS: 77063; 77067